=== PATIENT | male | born 1970 | race American Indian/Alaskan Native ===

== ENCOUNTER 2016-10-26 22:35 | Emergency (ER) | payer SELFPAY ==
[2016-10-26 22:53] VITALS: BP 138/94
[2016-10-26] MEDS ORDERED: DUONEB 0.5 MG-3 MG/3 ML SOLN IH ONE (22:55)
[2016-10-26 23:55] LABS: Hematocrit 43.3 % (35.5-45.6); Hemoglobin 14.5 gm/dl (11.8-15.2); Mean Corpuscular HGB Conc 34 % (32-34); Mean Corpuscular Hemoglobin 32 pg (28-32); Mean Corpuscular Volume 96 fl (84-94); Platelet Count 220 K/mm3 (140-440); Red Blood Count 4.51 M/mm3 (3.65-5.03); Red Cell Distribution Width 14.1 % (13.2-15.2); White Blood Count 4.2 K/mm3 (4.5-11.0)
[2016-10-27 00:16] LABS: Anion Gap 19 mmol/L; Blood Urea Nitrogen 11 mg/dL (9-20); Calcium 9.4 mg/dL (8.4-10.2); Carbon Dioxide 27 mmol/L (22-30); Chloride 101.8 mmol/L (98-107); Glucose 88 mg/dL (75-100); Potassium 3.5 mmol/L (3.6-5.0); Sodium 144 mmol/L (137-145)
--- NOTE | 2016-10-27 01:17 | XRay Report ---
FINAL REPORT PROCEDURE: XR CHEST ROUTINE 2V TECHNIQUE: PA and lateral chest radiographs were obtained. CPT 45691 HISTORY: ANDRA, send for report COMPARISON: No prior studies are available for comparison. FINDINGS: Heart: Normal. Mediastinum/Vessels: Normal. Lungs/Pleural space: Normal. Bony thorax: No acute osseous abnormality. Other: IMPRESSION: Normal examination.
[2016-10-27 04:12] LABS: Basophils % (Manual) 0 % (0.0-1.8); Blastocytes % (Manual) 0 %
[2016-10-27 04:13] LABS: Diff Status Complete; RBC Morphology Normal
== END 2016-10-27 01:36 | disposition left against medical advice (07) ==
LOC: ED 22:35
DX: J45.909 Unspecified asthma, uncomplicated (principal); R06.00 Dyspnea, unspecified; R07.89 Other chest pain; Z53.21 Procedure and treatment not carried out due to patient leaving prior to being seen by health care provider
CPT/HCPCS: 36415; 71020; 80048; 84484; 85007; 85025; 93005; 93010; 94640

== ENCOUNTER 2016-11-22 09:54 | Emergency (ER) | payer BC, OTHER ==
--- NOTE | 2016-11-22 11:27 | XRay Report ---
CHEST 2 VIEWS INDICATION: Shortness of breath. COMPARISON: 10/26/2016. FINDINGS: PA and lateral chest radiographs demonstrate normal cardiomediastinal silhouette. Clear lungs. Intact bones. CONCLUSION: No acute disease in the chest. Thank you for the opportunity to participate in this patient's care.
[2016-11-22 11:53] LABS: Hematocrit 42.1 % (35.5-45.6); Hemoglobin 14.1 gm/dl (11.8-15.2); Mean Corpuscular HGB Conc 34 % (32-34); Mean Corpuscular Hemoglobin 32 pg (28-32); Mean Corpuscular Volume 95 fl (84-94); Platelet Count 222 K/mm3 (140-440); Red Blood Count 4.45 M/mm3 (3.65-5.03); Red Cell Distribution Width 13.5 % (13.2-15.2); White Blood Count 3.3 K/mm3 (4.5-11.0)
[2016-11-22 12:05] LABS: Anion Gap 15 mmol/L; Blood Urea Nitrogen 9 mg/dL (9-20); Calcium 9.4 mg/dL (8.4-10.2); Carbon Dioxide 28 mmol/L (22-30); Glucose 91 mg/dL (75-100); Potassium 4.3 mmol/L (3.6-5.0); Sodium 142 mmol/L (137-145)
[2016-11-22] MEDS ORDERED: DELTASONE PO ONE (13:36)
[2016-11-22] MEDS ORDERED: DUONEB 0.5 MG-3 MG/3 ML SOLN IH ONE (13:36)
[2016-11-22] MEDS ORDERED: MOTRIN PO ONE (13:36)
--- NOTE | 2016-11-22 13:38 | Emergency Department Report ---
ED Shortness of Breath HPI - General Chief Complaint: Upper Respiratory Infection Stated Complaint: ANDRA Time Seen by Provider: 11/22/16 13:16 Source: patient Mode of arrival: Ambulatory Limitations: No Limitations - History of Present Illness Initial Comments: 46-year-old male past medical history asthma since with complaint of brief episode of shortness of breath at approximately 4 AM this morning. Patient states that he was moving around furniture at home became short of breath states that there was a lot of dust in the air. Patient also states that he had a brief episode of anterior chest pain. Patient states that he has been moving around a lot of heavy furniture in the last few days. Patient is awake alert and oriented 3, does not appear to be in acute distress, speaking full sentences no visible signs of respiratory distress no stridor no audible wheezing. Patient denies any palpitations and no nausea no vomiting no abdominal pain. Denies any smoking no history of PE or DVT. No recent surgery. Denies any hemoptysis. States he ran out of his nebulizer fluid and pump. Pain and shortness of breath has since resolved. It is non-pleuritic in nature. MD Complaint: shortness of breath, "asthma attack" Onset/Timin -: hour(s) Severity: mild Pain Scale: 5 Quality: dull Consistency: now resolved Improves With: bronchodilators Known History Of: asthma Associated Symptoms: chest pain Treatments Prior to Arrival: none - Related Data Home Oxygen Therapy: No Home Medications Medication Instructions Recorded Confirmed Last Taken Cetirizine HCl [Zyrtec] 10 mg PO DAILY 06/20/13 06/20/13 06/17/13 Previous Rx's Medication Instructions Recorded Last Taken Type HYDROcodone/ACETAMINOPHEN [Hastings 1 each PO Q6H PRN #10 tablet 02/04/14 Unknown Rx 5/325 Tablet] Ondansetron [Zofran Odt] 4 mg SL Q6H PRN #8 tab.rapdis 02/04/14 Unknown Rx Albuterol Sulfate [Albuterol 0.63% 0.63 mg IH TID PRN #1 box 11/22/16 Unknown Rx NEBS] Albuterol Sulfate [Ventolin HFA] 2 puff IH Q4H PRN #1 hfa.aer.ad 11/22/16 Unknown Rx Ibuprofen [Motrin] 600 mg PO Q8H PRN #25 tablet 11/22/16 Unknown Rx predniSONE [Deltasone] 40 mg PO QDAY #10 tab 11/22/16 Unknown Rx Allergies Allergy/AdvReac Type Severity Reaction Status Date / Time PEANUT BUTTER Allergy Shortness Uncoded 11/22/16 11:08 of Breath ED Review of Systems ROS: Stated complaint: ANDRA Other details as noted in HPI Constitutional: denies: chills, fever Eyes: denies: eye pain, eye discharge, vision change ENT: denies: ear pain, throat pain Respiratory: denies: cough, shortness of breath, wheezing Cardiovascular: chest pain. denies: palpitations Endocrine: no symptoms reported Gastrointestinal: denies: abdominal pain, nausea, diarrhea Genitourinary: denies: urgency, dysuria Musculoskeletal: denies: back pain, joint swelling, arthralgia Skin: denies: rash, lesions Neurological: denies: headache, weakness, paresthesias Psychiatric: denies: anxiety, depression Hematological/Lymphatic: denies: easy bleeding, easy bruising ED Past Medical Hx - Past Medical History Hx GERD: Yes Hx Sickle Cell Disease: No Hx Headaches / Migraines: Yes ("SINUS MIGRAINES") Hx Seizures: No Hx Asthma: Yes - Surgical History Additional Surgical History: "NASAL SURGERY" - Social History Smoking Status: Never Smoker Substance Use Type: None - Medications Home Medications: Home Medications Medication Instructions Recorded Confirmed Last Taken Type Cetirizine HCl [Zyrtec] 10 mg PO DAILY 06/20/13 06/20/13 06/17/13 History HYDROcodone/ACETAMINOPHEN [[place]astings 1 each PO Q6H PRN #10 tablet 02/04/14 Unknown Rx 5/325 Tablet] Ondansetron [Zofran Odt] 4 mg SL Q6H PRN #8 tab.rapdis 02/04/14 Unknown Rx Albuterol Sulfate [Albuterol 0.63% 0.63 mg IH TID PRN #1 box 11/22/16 Unknown Rx NEBS] Albuterol Sulfate [Ventolin HFA] 2 puff IH Q4H PRN #1 hfa.aer.ad 11/22/16 Unknown Rx Ibuprofen [Motrin] 600 mg PO Q8H PRN #25 tablet 11/22/16 Unknown Rx predniSONE [Deltasone] 40 mg PO QDAY #10 tab 11/22/16 Unknown Rx ED Physical Exam - General Limitations: No Limitations General appearance: alert, in no apparent distress - Head Head exam: Present: atraumatic, normocephalic - Eye Eye exam: Present: normal appearance, PERRL, EOMI - ENT ENT exam: Present: mucous membranes moist - Neck Neck exam: Present: normal inspection, full ROM - Respiratory Respiratory exam: Present: normal lung sounds bilaterally, chest wall tenderness (patient has mild reproducible tenderness with palpation of pectoral muscles bilaterally.). Absent: respiratory distress - Cardiovascular Cardiovascular Exam: Present: regular rate, normal rhythm, normal heart sounds. Absent: systolic murmur, diastolic murmur, rubs, gallop - GI/Abdominal GI/Abdominal exam: Present: soft, normal bowel sounds - Rectal Rectal exam: Present: deferred - Extremities Exam Extremities exam: Present: normal inspection, normal capillary refill - Back Exam Back exam: Present: normal inspection - Neurological Exam Neurological exam: Present: alert, oriented X3, CN II-XII intact, normal gait - Psychiatric Psychiatric exam: Present: normal affect, normal mood - Skin Skin exam: Present: warm, dry, intact, normal color. Absent: rash ED Course Vital Signs 11/22/16 11/22/16 11/22/16 11:03 13:38 13:47 Temperature 97.7 F 98.5 F Pulse Rate 71 59 L Pulse Rate [ 54 L Posterior Bilateral Throughout] Respiratory 18 18 Rate Respiratory 16 Rate [Posterior Bilateral Throughout] Blood Pressure 119/75 Blood Pressure 121/80 [Right] O2 Sat by Pulse 100 100 Oximetry 11/22/16 14:04 Temperature Pulse Rate Pulse Rate [ 63 Posterior Bilateral Throughout] Respiratory Rate Respiratory 16 Rate [Posterior Bilateral Throughout] Blood Pressure Blood Pressure [Right] O2 Sat by Pulse Oximetry ED Medical Decision Making - Lab Data Result diagrams: 11/22/16 11:13 11/22/16 11:13 - Medical Decision Making A/P: Reactive airway disease 1-Wells Criteria PE 0 criteria No need for further workup, as <2% chance of PE. If no criteria are positive and clinicians pre-test probability is <15%, PERC Rule criteria are satisfied; PERC Rule 0 criteria No need for further workup, as <2% chance of PE If no criteria are positive and clinicians pre-test probability is <15%, PERC Rule criteria are satisfied. 2- Heart Score 0 points Low Score (0-3 points) Risk of MACE of 0.9-1.7%; PATTI 0 points 5% risk at 14 days of: all-cause mortality, new or recurrent CO, or severe recurrent ischemia requiring urgent re-vascularization. 3- pt states he ran out of his albuterol nebulizer and inhaler will give refill and short course prednisone. 4-Motrin when necessary 5- patient to follow up with cardiology. Low risk stratification based on history and physical. I discussed case w/ Dr. Aragon before discharge Critical care attestation.: If time is entered above; I have spent that time in minutes in the direct care of this critically ill patient, excluding procedure time. ED Disposition Clinical Impression: Chest wall pain Reactive airway disease Qualifiers: Asthma severity: mild intermittent Asthma complication type: with acute exacerbation Qualified Code(s): J45.21 - Mild intermittent asthma with (acute) exacerbation Disposition: DISCHARGED TO HOME OR SELFCARE Is pt being admited?: No Does the pt Need Aspirin: No Condition: Stable Instructions: Chest Pain (ED), Reactive Airways Disease (ED) Prescriptions: Albuterol Sulfate [Albuterol 0.63% NEBS] 0.63 mg IH TID PRN #1 box PRN Reason: Wheezing Albuterol Sulfate [Ventolin HFA] 2 puff IH Q4H PRN #1 hfa.aer.ad PRN Reason: Shortness Of Breath Ibuprofen [Motrin] 600 mg PO Q8H PRN #25 tablet PRN Reason: Pain predniSONE [Deltasone] 40 mg PO QDAY #10 tab Referrals: DONELL LIN MD [Staff Physician] - 3-5 Days PRINCESS BALBUENA MD [Staff Physician] - 3-5 Days Forms: Work/School Release Form(ED) Time of Disposition: 15:13
[2016-11-22 15:10] LABS: Creatine Kinase 178 units/L (55-170)
[2016-11-22 15:38] VITALS: BP 120/78
== END 2016-11-22 15:39 | disposition home or self-care (01) ==
LOC: ED 09:54
DX: J45.21 Mild intermittent asthma with (acute) exacerbation (principal); K21.9 Gastro-esophageal reflux disease without esophagitis; G43.909 Migraine, unspecified, not intractable, without status migrainosus; Z91.010 Allergy to peanuts; Z98.890 Other specified postprocedural states
CPT/HCPCS: 36415; 71020; 80048; 82550; 82553; 84484; 85025; 93005; 93010; 94640; 99284; J7512